=== PATIENT | female | born 1955 | race Hispanic/Latino ===

== ENCOUNTER → 2018-11-10 | Outpatient (CLI) | payer BC ==
[~2018-11-10] MED LIST: AEC81 PO; CARV12.580 PO; IOHEXOL-350 75 ML VIAL IV ONE; LOSA50TA2 PO; PHOSLOC PO; ROSU10TA PO
== END | disposition home or self-care (01) ==
LOC: RAH 07:18
PROVIDERS: ATTEND Internal Medicine Cardiovascular Disease
DX: I65.21 Occlusion and stenosis of right carotid artery (principal)
CPT/HCPCS: 70496; 70498; Q9967

== ENCOUNTER 2018-12-19 08:45 | Day surgery (SDC) | payer BC ==
[2018-12-15 11:32] LABS: BASOPHILS % (AUTO) 0.7 % (0.0-5.0); EOSINOPHILS % (AUTO) 1.7 % (0.0-8.0); HEMATOCRIT 34.5 % (36-48); MEAN CORPUSCULAR HEMOGLOBIN 32.2 pg (27.0-33.0); MEAN CORPUSCULAR HGB CONC 33.2 g/dL (32.0-36.0); MEAN CORPUSCULAR VOLUME 96.7 fL (79-99); NEUTROPHILS % (AUTO) 77.6 % (40.0-77.0); PLATELET COUNT (AUTO) 156 K/uL (130-400); RED BLOOD CELL COUNT(AUTO) 3.57 MIL/uL (4.00-5.50); RED CELL DISTRIBUTION WIDTH 15.1 % (11.0-15.5); WHITE BLOOD COUNT (AUTO) 6.2 K/uL (4.8-10.8)
[2018-12-15 11:41] LABS: CREATININE 2.2 mg/dL (0.5-1.5); POTASSIUM 4.3 mmol/L (3.5-5.1)
[2018-12-15 11:46] LABS: APPEARANCE,URINE CLEAR (CLEAR); BILIRUBIN,URINE NEGATIVE (NEGATIVE); COLOR,URINE YELLOW (YELLOW); GLUCOSE, URINE (UA) 100 mg/dL (NEGATIVE); KETONES,URINE NEGATIVE (NEGATIVE); LEUKOCYTE ESTERASE ,URINE SMALL (NEGATIVE); NITRATE,URINE NEGATIVE (NEGATIVE); OCCULT BLOOD,URINE TRACE-LYSED (NEGATIVE); PROTEIN,URINE >=300 mg/dL (NEGATIVE); UROBILINOGEN,URINE 0.2 mg/dL (0.2-1.0)
[2018-12-15 11:50] LABS: BACTERIA,URINE Rare /HPF (None Seen); RBC,URINE 0-1 /HPF (0-1); SQUAMOUS EPITHELIAL CELL,UR Rare /HPF (0-2); WBC,URINE 0-1 /HPF (0-1)
[2018-12-15 12:15] LABS: INR 1.01 (0.85-1.15); PARTIAL THROMBOPLASTIN TIME 62.3 SEC (26.3-35.5); PROTHROMBIN TIME 10.6 SEC (9.6-11.6)
--- NOTE | 2018-12-18 11:10 | NUR ---
ABNORMAL LABS CREAT 2.2, URINE LEUKEST SMALL, PTT 62.3, DIALYSIS PT, REPORTED TO KELLIE MCLAIN. NO FURTHER ORDERS GIVEN, MAY PROCEED WITH PLANNED PROCEDURE.
[2018-12-19] VITALS (12 sets, daily range): BP systolic 123–210; BP diastolic 46–77
[~2018-12-19] VITALS: Ht 160 cm; Wt 64.1 kg
[~2018-12-19 08:45] MED LIST changes: -IOHEXOL-350 75 ML VIAL IV ONE; -ROSU10TA PO; +ROSU10TA22 PO; +SODIUM CHLORIDE 0.9% 500ML 500 ML IV SCH
[2018-12-19] MEDS ORDERED: ROSU20TA30 PO (09:11)
[2018-12-19] MEDS ORDERED: RANI150T7 PO (09:11)
[2018-12-19] MEDS ORDERED: HYDR-3420 PO (09:11)
[2018-12-19] MEDS ORDERED: CLOP75TA32 PO (09:11)
[2018-12-19] MEDS ORDERED: TRAM50TA4 PO (09:11)
[2018-12-19] MEDS ORDERED: LOSA50TA64 PO (09:11)
[2018-12-19] MEDS ORDERED: SODIUM CHLORIDE 0.9% 1000ML 1,000 ML IV ONE (10:10)
[2018-12-19] MEDS ORDERED: HYDRALAZINE HCL 20 MG/ML VIAL ONE ×3 (11:06→14:27)
[2018-12-19] MEDS ORDERED: HEPARIN SODIUM 1000UNIT/ML 10ML VIAL ONE (11:53)
[2018-12-19] MEDS ORDERED: SODIUM BICARB 50MEQ 50ML VIAL ONE (11:53)
[2018-12-19] MEDS ORDERED: IOHEXOL-350 50ML VIAL IV ONE (11:53)
[2018-12-19] MEDS ORDERED: IOHEXOL 350 MG/ML 100ML INFUS..BTL IV ONE (11:53)
[2018-12-19] MEDS ORDERED: LIDOCAINE HCL 2% 20ML ONE (11:53)
[2018-12-19] MEDS ORDERED: NITROGLYCERIN 5 MG/ML 10 ML VIAL IV ONE (11:53)
[2018-12-19] MEDS ORDERED: MIDAZOLAM HCL 1 MG/ML 2ML VIAL ONE ×2 (13:50→13:57)
[2018-12-19] MEDS ORDERED: MEPERIDINE-PF 25 MG/ML SYG ONE ×2 (13:50→13:57)
[2018-12-19] MEDS ORDERED: HYDRALAZINE HCL 20 MG/ML VIAL IV PRN (15:00)
[2018-12-19] MEDS ORDERED: GLUCAGON 1MG KIT 1 MG ML IM PRN (15:00)
[2018-12-19] MEDS ORDERED: DEXTROSE 50%-WATER 50 ML DISP.SYRIN IV PRN (15:00)
[2018-12-19] MEDS ORDERED: SODIUM CHLORIDE 0.9% 10 ML VIAL IVP SCH (15:00)
[2018-12-19] MEDS ORDERED: INSULIN HUMULIN R 100 UNIT/ML 3ML SQ SCH (16:30)
== END 2018-12-19 19:10 | disposition home or self-care (01) ==
LOC: DAH 08:45
PROVIDERS: ATTEND Internal Medicine Cardiovascular Disease
DX: I25.10 Atherosclerotic heart disease of native coronary artery without angina pectoris (principal); I65.22 Occlusion and stenosis of left carotid artery; I13.2 Hypertensive heart and chronic kidney disease with heart failure and with stage 5 chronic kidney disease, or end stage renal disease; E11.22 Type 2 diabetes mellitus with diabetic chronic kidney disease; N18.6 End stage renal disease; I50.32 Chronic diastolic (congestive) heart failure; Z99.2 Dependence on renal dialysis; G47.33 Obstructive sleep apnea (adult) (pediatric); E11.51 Type 2 diabetes mellitus with diabetic peripheral angiopathy without gangrene; E11.319 Type 2 diabetes mellitus with unspecified diabetic retinopathy without macular edema; E11.21 Type 2 diabetes mellitus with diabetic nephropathy; I25.5 Ischemic cardiomyopathy
CPT/HCPCS: 36223; 36415; 71045; 75710; 80048; 81001; 82948 ×2; 85025; 85610; 85730; 93005; 93458; A4606; C1760; C1894; J0360 ×4; J1644; J2175 ×2; J2250 ×2; J3490 ×3; J7030; Q9965 ×2; Q9967 ×2; 99156; 99157

== ENCOUNTER → 2019-01-19 | Outpatient (CLI) | payer BC ==
[~2019-01-19] VITALS: Ht 160 cm; Wt 66.0 kg
[~2019-01-19] MED LIST changes: -AEC81 PO; +BUSP5TAB3 PO; +CLON0.1T PO; +CLOP75TA32 PO; +HYDR-3420 PO; -LOSA50TA2 PO; +LOSA50TA64 PO; +RANI150T7 PO; -ROSU10TA22 PO; +ROSU20TA30 PO; -SODIUM CHLORIDE 0.9% 500ML 500 ML IV SCH; +TRAM50TA4 PO
[2019-01-19 11:26] LABS: BASOPHILS % (AUTO) 0.9 % (0.0-5.0); EOSINOPHILS % (AUTO) 1.8 % (0.0-8.0); HEMATOCRIT 34.6 % (36-48); LYMPHOCYTES % (AUTO) 12.2 % (21.0-51.0); MEAN CORPUSCULAR HGB CONC 33.5 g/dL (32.0-36.0); MEAN CORPUSCULAR VOLUME 95.4 fL (79-99); MONOCYTES % (AUTO) 5.6 % (3.0-13.0); NEUTROPHILS % (AUTO) 79.5 % (40.0-77.0); PLATELET COUNT (AUTO) 104 K/uL (130-400); RED BLOOD CELL COUNT(AUTO) 3.62 MIL/uL (4.00-5.50); RED CELL DISTRIBUTION WIDTH 14.8 % (11.0-15.5); WHITE BLOOD COUNT (AUTO) 7.2 K/uL (4.8-10.8)
[2019-01-19 11:27] LABS: APPEARANCE,URINE Clear (CLEAR); BILIRUBIN,URINE Negative (NEGATIVE); COLOR,URINE Yellow (YELLOW); GLUCOSE, URINE (UA) 250 mg/dL (NEGATIVE); KETONES,URINE Negative (NEGATIVE); LEUKOCYTE ESTERASE ,URINE Trace (NEGATIVE); NITRATE,URINE Negative (NEGATIVE); OCCULT BLOOD,URINE Negative (NEGATIVE); PH,URINE >=9.0 (5.0-8.0); PROTEIN,URINE >=1000 mg/dL (NEGATIVE); UROBILINOGEN,URINE 0.2 mg/dL (0.2-1.0)
[2019-01-19 11:32] LABS: BACTERIA,URINE Rare /HPF (None Seen); RBC,URINE 0-1 /HPF (0-1); SQUAMOUS EPITHELIAL CELL,UR Rare /HPF (0-2)
[2019-01-19 11:35] LABS: CREATININE 2.6 mg/dL (0.5-1.5); POTASSIUM 4.1 mmol/L (3.5-5.1)
[2019-01-19 11:41] LABS: INR 0.99 (0.85-1.15); PROTHROMBIN TIME 10.4 SEC (9.6-11.6)
[2019-01-19 11:53] LABS: PARTIAL THROMBOPLASTIN TIME 94.9 SEC (26.3-35.5)
--- NOTE | 2019-01-19 12:22 | NUR ---
NOTIFIED KELLIE MCLAIN OF DR. ALCANTAR OF PTT 94.9CREAT 2.6,RBC 3.62,,HGB 11.6,HCT 34.6,ULEUKEST TRACE,UWBC 2-5,U GLU 250, UPROT GREATER THAN 1000. AND B/P OF , PER KELLIE MCLAIN OK TO PROCEED, REDRAW PT, PTT ON DAY OF PROCEDURE, PT TO TAKE HER CLONIDINE 0.1 MG NOW AND LET HER GO HOME. PATIENT DENIES ANY CHEST PAIN OR SOB
[2019-01-19 12:37] VITALS: BP 197/87
== END | disposition home or self-care (01) ==
LOC: EDSTATUS 10:00 → DAH 10:00 → EDSTATUS 10:00
PROVIDERS: ATTEND Internal Medicine Cardiovascular Disease
DX: I51.7 Cardiomegaly (principal); R94.31 Abnormal electrocardiogram [ECG] [EKG]; I65.29 Occlusion and stenosis of unspecified carotid artery
CPT/HCPCS: 36415; 71045; 80048; 81001; 85025; 85610; 85730; 86850; 86900; 86901; 86922; 93005

== ENCOUNTER 2019-02-28 05:30 | Inpatient (IN) | payer BC | END 2019-03-02 15:05 | disposition home or self-care (01) | LOC: DAHIP 05:30 → 2CH 10:38 → 2BH 21:54 | PROC: B3171ZZ Fluoroscopy of Left Internal Carotid Artery using Low Osmolar Contrast (ICD-10-PCS; principal; 2019-02-28) | PROC: 037L3DZ Dilation of Left Internal Carotid Artery with Intraluminal Device, Percutaneous Approach (ICD-10-PCS; 2019-02-28) | DX: I65.22 Occlusion and stenosis of left carotid artery (principal); N18.6 End stage renal disease; Z99.2 Dependence on renal dialysis; E11.22 Type 2 diabetes mellitus with diabetic chronic kidney disease; E11.51 Type 2 diabetes mellitus with diabetic peripheral angiopathy without gangrene ==

== ENCOUNTER 2019-03-18 19:25 | Emergency (ER) | payer BC ==
[~2019-03-18 19:25] MED LIST changes: +ASPI-555 PO; +FERR325T22 PO; -ROSU20TA30 PO; +ROSU20TA31 PO
[2019-03-18] MEDS ORDERED: ONDANSETRON HCL 4 MG/2 ML VIAL ONE (21:02)
[2019-03-18 21:31] LABS: BASOPHILS % (AUTO) 3.6 % (0.0-5.0); HEMATOCRIT 31.5 % (36-48); LYMPHOCYTES % (AUTO) 12.3 % (21.0-51.0); MEAN CORPUSCULAR VOLUME 93.8 fL (79-99); MONOCYTES % (AUTO) 8.8 % (3.0-13.0); NEUTROPHILS % (AUTO) 66.3 % (40.0-77.0); NUCLEATED RED BLOOD CELLS 0.1 % (0.0-0.19); PLATELET COUNT (AUTO) 121 K/uL (130-400); RED BLOOD CELL COUNT(AUTO) 3.36 MIL/uL (4.00-5.50); RED CELL DISTRIBUTION WIDTH 14.9 % (11.0-15.5); WHITE BLOOD COUNT (AUTO) 4.8 K/uL (4.8-10.8)
[2019-03-18 21:39] LABS: CREATININE 5.8 mg/dL (0.5-1.5)
[2019-03-18 21:44] LABS: POTASSIUM 5.4 mmol/L (3.5-5.1)
[2019-03-18 21:45] LABS: ALBUMIN 3.3 g/dL (3.5-5.0); BILIRUBIN,TOTAL 0.5 mg/dL (0.2-1.0); TOTAL PROTEIN, SERUM 7.3 g/dL (6.0-8.3)
[2019-03-18] MEDS ORDERED: IPRATROPIUM/ALBUTEROL SULFATE 3 ML SOLUTION IH ONE (22:14)
== END 2019-03-19 01:02 | disposition home or self-care (01) ==
LOC: EDH 19:25
DX: I13.2 Hypertensive heart and chronic kidney disease with heart failure and with stage 5 chronic kidney disease, or end stage renal disease (principal); E11.22 Type 2 diabetes mellitus with diabetic chronic kidney disease; N18.6 End stage renal disease; I50.9 Heart failure, unspecified; J44.9 Chronic obstructive pulmonary disease, unspecified; E78.5 Hyperlipidemia, unspecified; Z88.6 Allergy status to analgesic agent; Z88.8 Allergy status to other drugs, medicaments and biological substances; Z90.49 Acquired absence of other specified parts of digestive tract; Z98.890 Other specified postprocedural states; Z99.2 Dependence on renal dialysis
CPT/HCPCS: 36415; 74018; 80053; 85025; 96374; 99285; J2405

== ENCOUNTER 2019-03-19 02:50 | Emergency (ER) | payer BC ==
[2019-03-19] MEDS ORDERED: ONDANSETRON HCL 4 MG/2 ML VIAL ONE (03:49)
[2019-03-19] MEDS ORDERED: MORPHINE SULFATE 2 MG/ML 1ML SYG ONE (03:50)
== END 2019-03-19 05:31 | disposition home or self-care (01) ==
LOC: EDH 02:50
DX: I13.2 Hypertensive heart and chronic kidney disease with heart failure and with stage 5 chronic kidney disease, or end stage renal disease (principal); E11.22 Type 2 diabetes mellitus with diabetic chronic kidney disease; N18.6 End stage renal disease; I50.9 Heart failure, unspecified; R11.2 Nausea with vomiting, unspecified; R19.7 Diarrhea, unspecified; R10.9 Unspecified abdominal pain; E78.5 Hyperlipidemia, unspecified; J44.9 Chronic obstructive pulmonary disease, unspecified; Z99.2 Dependence on renal dialysis; Z88.6 Allergy status to analgesic agent; Z88.8 Allergy status to other drugs, medicaments and biological substances
CPT/HCPCS: 96374; 96375; 99284; J2405

== ENCOUNTER 2019-05-24 17:50 | Observation (INO) | payer BC ==
[2019-05-24 18:35] LABS: BASOPHILS % (AUTO) 0.9 % (0.0-5.0); EOSINOPHILS % (AUTO) 2.9 % (0.0-8.0); HEMATOCRIT 38.5 % (36-48); LYMPHOCYTES % (AUTO) 19.1 % (21.0-51.0); MEAN CORPUSCULAR HEMOGLOBIN 32.4 pg (27.0-33.0); MEAN CORPUSCULAR HGB CONC 33.5 g/dL (32.0-36.0); MEAN CORPUSCULAR VOLUME 96.9 fL (79-99); MONOCYTES % (AUTO) 5.2 % (3.0-13.0); NEUTROPHILS % (AUTO) 71.9 % (40.0-77.0); PLATELET COUNT (AUTO) 144 K/uL (130-400); RED BLOOD CELL COUNT(AUTO) 3.97 MIL/uL (4.00-5.50); RED CELL DISTRIBUTION WIDTH 15.4 % (11.0-15.5); WHITE BLOOD COUNT (AUTO) 5.9 K/uL (4.8-10.8)
[2019-05-24 18:47] LABS: PROTHROMBIN TIME 10.5 SEC (9.6-11.6)
[2019-05-24 18:48] LABS: CREATININE 5.2 mg/dL (0.5-1.5); POTASSIUM 5.9 mmol/L (3.5-5.1)
[2019-05-24 18:54] LABS: ALBUMIN 3.6 g/dL (3.5-5.0); BILIRUBIN,TOTAL 0.4 mg/dL (0.2-1.0)
[2019-05-24 23:52] LABS: APPEARANCE,URINE Clear (CLEAR); BILIRUBIN,URINE Negative (NEGATIVE); COLOR,URINE Yellow (YELLOW); GLUCOSE, URINE (UA) TRACE mg/dL (NEGATIVE); KETONES,URINE Negative (NEGATIVE); LEUKOCYTE ESTERASE ,URINE Trace (NEGATIVE); NITRATE,URINE Negative (NEGATIVE); OCCULT BLOOD,URINE Negative (NEGATIVE); PH,URINE 8.5 (5.0-8.0); PROTEIN,URINE 300 mg/dL (NEGATIVE); UROBILINOGEN,URINE 0.2 mg/dL (0.2-1.0)
[2019-05-25] LABS: AMPHET/METH SCREEN,URINE NEGATIVE (NEGATIVE); BARBITURATE SCREEN, URINE NEGATIVE (NEGATIVE); BENZODIAZEPINES SCREEN,URINE NEGATIVE (NEGATIVE); CANNABINOID SCREEN,URINE NEGATIVE (NEGATIVE); COCAINE SCREEN,URINE NEGATIVE (NEGATIVE); OPIATE SCREEN,URINE NEGATIVE (NEGATIVE); PHENCYCLIDINE SCREEN,URINE NEGATIVE (NEGATIVE)
[2019-05-25 00:11] LABS: BACTERIA,URINE None Seen /HPF (None Seen); RBC,URINE None Seen /HPF (0-1); SQUAMOUS EPITHELIAL CELL,UR Rare /HPF (0-2); WBC,URINE 0-1 /HPF (0-1); YEAST,URINE BUDDING None Seen /HPF (None Seen)
[2019-05-25] MEDS ORDERED: INSULIN R PO SS1 SQ SCH (07:30)
[2019-05-25] MEDS ORDERED: ERGO500014 PO (09:07)
[2019-05-25] MEDS ORDERED: CPAP NASAL (09:07)
[2019-05-25] MEDS ORDERED: [UNRECOGNIZED DRUG - OTHER] ×2 (09:07→09:08)
[2019-05-25] MEDS ORDERED: LORA10TA7 PO (09:07)
[2019-05-25] MEDS ORDERED: COLE5PAC3 PO (09:07)
[2019-05-25] MEDS ORDERED: CLON0.1T PO (09:07)
[2019-05-25] MEDS ORDERED: RANI150T7 PO (09:07)
[2019-05-25] MEDS ORDERED: FOLI1TAB61 PO (09:07)
[2019-05-25] MEDS ORDERED: DOCU-116 PO (09:09)
--- NOTE | 2019-05-25 09:27 | NUR ---
DCP: HOME SW met with pt who lives with her Fracisco Castellanos [phone]. Pt states she is independent of all ADLS, has a shower chair she uses when feeling weak after dialysis treatment. [facility]. PCP is Theresa Patel and uses [facility] for rx. Denies dc needs and plan is home with Addendum: 05/25/19 at 09 by SUSANNAH GUILLAUME Amended: Links added.
[2019-05-25] MEDS ORDERED: CLONIDINE HCL 0.1 MG TABLET PO PRN (09:30)
[2019-05-25] MEDS ORDERED: TRAMADOL HCL 50 MG TABLET PO PRN (09:30)
[2019-05-25] MEDS ORDERED: DIPHENHYDRAMINE HCL 25 MG CAPSULE PO PRN (11:45)
[2019-05-25] MEDS ORDERED: ONDANSETRON HCL 4 MG/2 ML VIAL IV PRN (11:45)
[2019-05-25] MEDS ORDERED: ACETAMINOPHEN 325 MG TAB PO PRN ×2 (11:45)
[2019-05-25] MEDS ORDERED: ASPIRIN 81 MG EC TAB PO SCH (12:00)
--- NOTE | 2019-05-25 13:53 | NUR ---
DC DC INSTRUCTIONS GIVEN TO PT, PATIENT INSTRUCTED TO GO TO HEMODIALYSIS TODAY AT 1430 HAS ALREADY BEEN SET UP BY [facility] ER NURSE. INSTRUCTED TO F/U WITH DR. Theresa ROMAN. PT STATES HAS APPPOINTMENT SET UP ALREADY WITH ER. PATIENT INSTRUCTED TO CONTINUE HOME MEDS AND ON ASPIRIN DOSE THAT WAS INCREASE. SHE VERBALIZED UNDERSTANDING PT AWAKE AND ALERT, DENIES ANY PAIN OR DISCOMFORTS. RIGHT HAND PIV REMOVED, CATHETER INTACT, SITE ASYMPTOMATIC, PT WAITING FOR HER TO GO HOME
[2019-05-25] MEDS ORDERED: CALCIUM ACETATE 667 MG CAPSULE PO SCH (14:00)
[2019-05-25] MEDS ORDERED: HYDRALAZINE HCL 10 MG TABLET PO SCH (14:00)
[2019-05-25] MEDS ORDERED: CARVEDILOL 12.5 MG TABLET PO SCH (21:00)
[2019-05-25] MEDS ORDERED: ATORVASTATIN CALCIUM 40 MG TABLET PO SCH (21:00)
[2019-05-25] MEDS ORDERED: DOCUSATE SODIUM 100 MG CAP PO SCH (21:00)
[2019-05-25] MEDS ORDERED: BUSPIRONE HCL 5 MG TABLET PO SCH (21:00)
[2019-05-25] MEDS ORDERED: RANITIDINE HCL 15 MG/1 ML PO PRN (21:00)
[2019-05-25] MEDS ORDERED: LOSARTAN 50 MG TABLET PO SCH (21:00)
[2019-05-25] MEDS ORDERED: CPAP NASAL SCH (21:00)
[2019-05-25] MEDS ORDERED: LORATADINE 10 MG TABLET PO SCH (21:00)
[2019-05-26] MEDS ORDERED: CLOPIDOGREL BISULFATE 75 MG TAB PO SCH (09:00)
[2019-05-26] MEDS ORDERED: FERROUS SULFATE 325 MG TABLET.DR PO SCH (09:00)
[2019-05-26] MEDS ORDERED: FOLIC ACID/VITAMIN B COMP W-C 1 MG CAP/TAB PO SCH (09:00)
[2019-05-26] MEDS ORDERED: ENOXAPARIN SODIUM 30 MG/0.3 ML SQ SCH (09:00)
[2019-05-26] MEDS ORDERED: COLESTIPOL PO SCH (09:00)
[2019-05-28] MEDS ORDERED: ERGOCALCIFEROL (VITAMIN D2) 50,000 UNIT CAPSULE PO SCH (09:00)
== END 2019-05-25 14:14 | disposition home or self-care (01) ==
LOC: EDH 17:50 → EDHIP 19:47
PROVIDERS: ADMIT Internal Medicine; ATTEND Internal Medicine
DX: I63.9 Cerebral infarction, unspecified (principal); I13.2 Hypertensive heart and chronic kidney disease with heart failure and with stage 5 chronic kidney disease, or end stage renal disease; I50.42 Chronic combined systolic (congestive) and diastolic (congestive) heart failure; N18.6 End stage renal disease; R41.82 Altered mental status, unspecified; D63.8 Anemia in other chronic diseases classified elsewhere; E11.21 Type 2 diabetes mellitus with diabetic nephropathy; E11.22 Type 2 diabetes mellitus with diabetic chronic kidney disease; E11.319 Type 2 diabetes mellitus with unspecified diabetic retinopathy without macular edema; E11.42 Type 2 diabetes mellitus with diabetic polyneuropathy; E78.00 Pure hypercholesterolemia, unspecified; J44.9 Chronic obstructive pulmonary disease, unspecified; E78.2 Mixed hyperlipidemia; E87.5 Hyperkalemia; G47.33 Obstructive sleep apnea (adult) (pediatric); I25.10 Atherosclerotic heart disease of native coronary artery without angina pectoris; I65.22 Occlusion and stenosis of left carotid artery; K21.9 Gastro-esophageal reflux disease without esophagitis; Z86.73 Personal history of transient ischemic attack (TIA), and cerebral infarction without residual deficits; Z99.2 Dependence on renal dialysis; Z83.3 Family history of diabetes mellitus; Z82.49 Family history of ischemic heart disease and other diseases of the circulatory system; Z79.899 Other long term (current) drug therapy; Z79.02 Long term (current) use of antithrombotics/antiplatelets
CPT/HCPCS: 36415; 70450; 70544; 70547; 71045; 80053; 80305; 81001; 82550; 82948 ×4; 83721; 84484; 85025; 85610; 85730; 93005; 99284; G0378 ×3

== ENCOUNTER 2021-03-15 13:54 | Emergency (ER) | payer BC ==
[~2021-03-15] VITALS: Ht 160 cm; Wt 68.0 kg
[~2021-03-15 13:54] MED LIST changes: -ASPI-555 PO; +ASPI-556 PO; +COLE5PAC3 PO; +CPAP NASAL; +DOCU-116 PO; +ERGO500014 PO; +FOLI1TAB61 PO; +LORA10TA7 PO; +[UNRECOGNIZED DRUG - OTHER]
[2021-03-15 14:51] VITALS: BP 208/84
[2021-03-15 15:02] LABS: HEMATOCRIT 34.4 % (36-48); MEAN CORPUSCULAR HEMOGLOBIN 30.3 pg (27.0-33.0); MEAN CORPUSCULAR HGB CONC 32.8 g/dL (32.0-36.0); MEAN CORPUSCULAR VOLUME 92.2 fL (79-99); PLATELET COUNT (AUTO) 152 K/uL (130-400); RED BLOOD CELL COUNT(AUTO) 3.73 MIL/uL (4.00-5.50); RED CELL DISTRIBUTION WIDTH 14.3 % (11.0-15.5); WHITE BLOOD COUNT (AUTO) 10.5 K/uL (4.8-10.8)
[2021-03-15 15:19] LABS: ALBUMIN 3.8 g/dL (3.5-5.0); BILIRUBIN,TOTAL 0.6 mg/dL (0.2-1.0); CREATININE 6.4 mg/dL (0.5-1.5); POTASSIUM 5.6 mmol/L (3.5-5.1); TOTAL PROTEIN, SERUM 8.6 g/dL (6.0-8.3)
[2021-03-15 15:53] VITALS: BP 174/72
[2021-03-15] MEDS ORDERED: ONDANSETRON 4MG INJ ONE (16:07)
[2021-03-15 16:09] LABS: BASOPHILS % (MANUAL) 2 % (0-2); LYMPHOCYTES % (MANUAL) 20 % (22-44); MAN.DIFF COMMENT-IMPRESSION MANUAL DIFFERENTIAL; MONOCYTES % (MANUAL) 4 % (2-9); SEGMENTED NEUTROPHILS % 74 % (40-70)
[2021-03-15 16:10] LABS: PLATELET MORPHOLOGY COMMENT ADEQUATE
[2021-03-15] MEDS: 0.9% NACL 500ML IV.SOLN 500 ML IV ONE ×2 (16:10→17:38)
[2021-03-15] MEDS ORDERED: ONDANSETRON 4MG INJ IVP ONE (16:30)
[2021-03-15 16:53] VITALS: BP 173/63
[2021-03-15] MEDS ORDERED: ONDA4TAB4 PO (17:36)
[2021-03-15 17:55] VITALS: BP 159/86
== END 2021-03-15 19:15 | disposition home or self-care (01) ==
LOC: EDH 13:54
DX: E86.0 Dehydration (principal); R11.2 Nausea with vomiting, unspecified; I12.0 Hypertensive chronic kidney disease with stage 5 chronic kidney disease or end stage renal disease; E11.22 Type 2 diabetes mellitus with diabetic chronic kidney disease; N18.6 End stage renal disease; E11.65 Type 2 diabetes mellitus with hyperglycemia; I25.10 Atherosclerotic heart disease of native coronary artery without angina pectoris; Z79.82 Long term (current) use of aspirin; Z88.6 Allergy status to analgesic agent; Z79.899 Other long term (current) drug therapy; Z99.2 Dependence on renal dialysis; Z88.8 Allergy status to other drugs, medicaments and biological substances
CPT/HCPCS: 36415; 80053; 82150; 83690; 85025; 93005; 96374; 99284; J2405

== ENCOUNTER → 2021-05-28 | Outpatient (CLI) | payer BC ==
[~2021-05-28] MED LIST changes: +ONDA4TAB4 PO
== END ==
LOC: DAH 10:00 → EDSTATUS 06-02 08:55
PROVIDERS: ATTEND Internal Medicine Gastroenterology
DX: Z20.822 Contact with and (suspected) exposure to COVID-19 (principal); R19.7 Diarrhea, unspecified
CPT/HCPCS: 87635; C9803

== ENCOUNTER 2021-06-09 07:00 | Day surgery (SDC) | payer BC ==
[~2021-06-09] VITALS: Ht 160 cm; Wt 65.0 kg
[~2021-06-09 07:00] MED LIST changes: +0.9%NACL 1000ML 1,000 ML IV ONE
[2021-06-09 07:58] VITALS: BP 188/73
[2021-06-09 08:52] LABS: CREATININE 4.9 mg/dL (0.5-1.5); POTASSIUM 5.1 mmol/L (3.5-5.1)
[2021-06-09] MEDS ORDERED: PROPOFOL 10 MG/ML 20ML VIAL IV ONE (09:27)
[2021-06-09] MEDS ORDERED: ONDANSETRON 4MG INJ ONE (09:27)
[2021-06-09 10:15] VITALS: BP 98/39
[2021-06-09 10:22] VITALS: BP 117/46
[2021-06-09 10:29] VITALS: BP 126/50
[2021-06-09 10:48] VITALS: BP 133/65
== END 2021-06-09 11:00 | disposition home or self-care (01) ==
LOC: DAH 07:00 → ENDO 07:00
PROVIDERS: ATTEND Internal Medicine Gastroenterology
DX: R19.7 Diarrhea, unspecified (principal); Z20.822 Contact with and (suspected) exposure to COVID-19; R19.4 Change in bowel habit; D12.2 Benign neoplasm of ascending colon; D12.3 Benign neoplasm of transverse colon; D12.4 Benign neoplasm of descending colon; I12.0 Hypertensive chronic kidney disease with stage 5 chronic kidney disease or end stage renal disease; N18.6 End stage renal disease; E78.5 Hyperlipidemia, unspecified; F41.9 Anxiety disorder, unspecified; E11.9 Type 2 diabetes mellitus without complications; Z86.010 Personal history of colon polyps; Z90.49 Acquired absence of other specified parts of digestive tract; Z95.5 Presence of coronary angioplasty implant and graft; Z80.0 Family history of malignant neoplasm of digestive organs; Z79.899 Other long term (current) drug therapy; Z98.890 Other specified postprocedural states
CPT/HCPCS: 36415; 43239; 45380; 45385; 80048; 87635; 93005; A4215 ×2; A4221; A4222; A4223; A4606; A4620; A4663; C9803; J2405; J2704; J7030

== ENCOUNTER 2022-09-06 06:56 | Observation (INO) | payer MEDICARE, OTHER ==
[2022-09-06] VITALS (17 sets, daily range): BP systolic 127–164; BP diastolic 54–83
[~2022-09-06] VITALS: Ht 160 cm; Wt 68.7 kg
[~2022-09-06 06:56] MED LIST changes: -0.9%NACL 1000ML 1,000 ML IV ONE; -COLE5PAC3 PO; -CPAP NASAL; -ERGO500014 PO; -FERR325T22 PO; -LORA10TA7 PO; -RANI150T7 PO; -[UNRECOGNIZED DRUG - OTHER]
[2022-09-06 07:34] LABS: BASOPHILS % (AUTO) 0.5 % (0.0-5.0); EOSINOPHILS % (AUTO) 2.8 % (0.0-8.0); HEMATOCRIT 35.1 % (36-48); LYMPHOCYTES % (AUTO) 16.3 % (21.0-51.0); MEAN CORPUSCULAR HEMOGLOBIN 30.9 pg (27.0-33.0); MEAN CORPUSCULAR HGB CONC 32.2 g/dL (32.0-36.0); MEAN CORPUSCULAR VOLUME 95.9 fL (79-99); MONOCYTES % (AUTO) 5.3 % (3.0-13.0); NEUTROPHILS % (AUTO) 74.9 % (40.0-77.0); PLATELET COUNT (AUTO) 80 K/uL (130-400); RED BLOOD CELL COUNT(AUTO) 3.66 MIL/uL (4.00-5.50); RED CELL DISTRIBUTION WIDTH 16.9 % (11.0-15.5); WHITE BLOOD COUNT (AUTO) 4.4 K/uL (4.8-10.8)
[2022-09-06 07:43] LABS: INR 1.11 (0.85-1.15)
[2022-09-06 07:44] LABS: PARTIAL THROMBOPLASTIN TIME 25.9 SEC (26.3-35.5)
[2022-09-06 08:05] LABS: ALBUMIN 3.7 g/dL (3.5-5.0); CREATININE 6.7 mg/dL (0.5-1.5); MAGNESIUM 2.1 mg/dL (1.80-2.40); POTASSIUM 4.9 mmol/L (3.5-5.1); TOTAL PROTEIN, SERUM 7.7 g/dL (6.0-8.3)
[2022-09-06 08:14] LABS: B-TYPE NATRIURETIC PEPTIDE > 5000 pg/mL (0-100)
[2022-09-06] MEDS ORDERED: FUROSEMIDE 40MG VIAL IV STA (08:26)
[2022-09-06] MEDS ORDERED: ACETAMINOPHEN 325 MG TAB PO PRN ×2 (09:00)
[2022-09-06] MEDS ORDERED: ONDANSETRON 4MG INJ IV PRN (09:00)
[2022-09-06 09:12] LABS: RETICULOCYTE % (AUTO) 0.76 % (0.42-2.23)
[2022-09-06] MEDS: NITROGLYCERIN 1GM OINT 1 INCH/1GM TD SCH ×2 (09:12→17:57)
[2022-09-06] MEDS: FAMOTIDINE 20MG VIAL IV SCH ×2 (09:12→19:58)
[2022-09-06 09:17] LABS: % IRON SATURATION 16.1 % (22-44)
[2022-09-06 09:30] LABS: THYROID STIMULATING HORMONE 3.36 uIU/mL (0.36-3.74)
[2022-09-06] MEDS ORDERED: HYDROXYZINE 25 MG TABLET PO ONE (09:30)
[2022-09-06] MEDS ORDERED: OSELTAMIVIR PHOSPHATE 75 MG CAP PO STA (10:08)
[2022-09-06] MEDS: INSULIN HUMULIN R 100 UNIT/ML 3ML SQ SCH ×3 (12:59→21:00)
[2022-09-06 16:13] LABS: HEPATITIS B SURFACE ANTIGEN Non-Reactive (Nonreactive)
[2022-09-06] MEDS ORDERED: HEPARIN 5,000 UNIT VIAL IJ SCH (17:30)
[2022-09-06] MEDS ORDERED: HEPARIN 5,000 UNIT VIAL ONE (17:38)
[2022-09-07] VITALS: BP 138/70
[2022-09-07] MEDS: NITROGLYCERIN 1GM OINT 1 INCH/1GM TD SCH ×3 (00:40→17:12)
[2022-09-07 04:00] VITALS: BP 155/73
[2022-09-07] MEDS ORDERED: ALPRAZOLAM 0.25 MG TABLET PO ONE (04:30)
[2022-09-07 05:09] LABS: BASOPHILS % (AUTO) 0.8 % (0.0-5.0); EOSINOPHILS % (AUTO) 1.8 % (0.0-8.0); HEMATOCRIT 33.8 % (36-48); LYMPHOCYTES % (AUTO) 14.5 % (21.0-51.0); MEAN CORPUSCULAR HEMOGLOBIN 31.1 pg (27.0-33.0); MEAN CORPUSCULAR HGB CONC 32.2 g/dL (32.0-36.0); MEAN CORPUSCULAR VOLUME 96.3 fL (79-99); MONOCYTES % (AUTO) 5.3 % (3.0-13.0); NEUTROPHILS % (AUTO) 77.4 % (40.0-77.0); PLATELET COUNT (AUTO) 76 K/uL (130-400); RED BLOOD CELL COUNT(AUTO) 3.51 MIL/uL (4.00-5.50); RED CELL DISTRIBUTION WIDTH 16.5 % (11.0-15.5)
[2022-09-07 05:18] LABS: CREATININE 5.4 mg/dL (0.5-1.5); POTASSIUM 4.2 mmol/L (3.5-5.1)
[2022-09-07] MEDS: INSULIN HUMULIN R 100 UNIT/ML 3ML SQ SCH ×3 (06:20→16:30)
[2022-09-07 08:08] VITALS: BP 144/58
[2022-09-07] MEDS ORDERED: CLOP-31 PO (08:23)
[2022-09-07] MEDS ORDERED: TRAM50TA4 PO (08:23)
[2022-09-07] MEDS ORDERED: ASPI-1443 PO (08:23)
[2022-09-07] MEDS ORDERED: LORA10TA7 PO (08:23)
[2022-09-07] MEDS ORDERED: CLON0.1T PO (08:23)
[2022-09-07] MEDS ORDERED: FOLI1TAB82 PO (08:23)
[2022-09-07] MEDS: FAMOTIDINE 20MG VIAL IV SCH (08:47)
[2022-09-07 11:27] VITALS: BP 132/73
[2022-09-07] MEDS ORDERED: HEPARIN 5,000 UNIT VIAL IJ SCH (15:00)
[2022-09-07 16:23] VITALS: BP 136/68
== END 2022-09-07 19:00 | disposition home or self-care (01) ==
LOC: EDH 06:56 → EDHIP 08:45 → 4BH 14:35
PROVIDERS: ADMIT Internal Medicine; ATTEND Internal Medicine
DX: E87.70 Fluid overload, unspecified (principal); Z20.822 Contact with and (suspected) exposure to COVID-19; J90 Pleural effusion, not elsewhere classified; D61.818 Other pancytopenia; E87.1 Hypo-osmolality and hyponatremia; R82.1 Myoglobinuria; I12.0 Hypertensive chronic kidney disease with stage 5 chronic kidney disease or end stage renal disease; E11.22 Type 2 diabetes mellitus with diabetic chronic kidney disease; N18.6 End stage renal disease; E11.319 Type 2 diabetes mellitus with unspecified diabetic retinopathy without macular edema; E78.00 Pure hypercholesterolemia, unspecified; E87.8 Other disorders of electrolyte and fluid balance, not elsewhere classified; J44.9 Chronic obstructive pulmonary disease, unspecified; N25.81 Secondary hyperparathyroidism of renal origin; J96.90 Respiratory failure, unspecified, unspecified whether with hypoxia or hypercapnia; Z79.82 Long term (current) use of aspirin; Z88.6 Allergy status to analgesic agent; Z91.199 Patient's noncompliance with other medical treatment and regimen due to unspecified reason; Z99.2 Dependence on renal dialysis; Z79.899 Other long term (current) drug therapy
CPT/HCPCS: 96374; 96376 ×2; 96375; 99285; 84443; 83540; 83550; 82550; 83735; 83874; 84484; 80053; 83880; 82728; 85025 ×2; 85610; 85730; 85045; 87804 ×2; 82948 ×6; 86706; 87340; 86704; 82746; 36415 ×2; 87635; 71045; 93005; 80048; J1815; G0378 ×34; J3490 ×3; J1644 ×2; J1940; 90935

== ENCOUNTER 2022-12-10 09:41 | Day surgery (SDC) | payer OTHER ==
[2022-12-08 11:18] LABS: BASOPHILS % (AUTO) 0.9 % (0.0-5.0); EOSINOPHILS % (AUTO) 3.5 % (0.0-8.0); LYMPHOCYTES % (AUTO) 16.8 % (21.0-51.0); MEAN CORPUSCULAR HEMOGLOBIN 31.8 pg (27.0-33.0); MEAN CORPUSCULAR HGB CONC 32.1 g/dL (32.0-36.0); NEUTROPHILS % (AUTO) 72.6 % (40.0-77.0); PLATELET COUNT (AUTO) 143 K/uL (130-400); RED BLOOD CELL COUNT(AUTO) 3.84 MIL/uL (4.00-5.50); RED CELL DISTRIBUTION WIDTH 15.4 % (11.0-15.5); WHITE BLOOD COUNT (AUTO) 5.4 K/uL (4.8-10.8)
[2022-12-08 11:28] LABS: CREATININE 3.5 mg/dL (0.5-1.5); POTASSIUM 4.6 mmol/L (3.5-5.1)
[2022-12-08 11:30] LABS: INR 1.04 (0.85-1.15); PROTHROMBIN TIME 11.3 SEC (9.6-11.6)
[2022-12-08 11:31] LABS: PARTIAL THROMBOPLASTIN TIME 27.9 SEC (26.3-35.5)
[2022-12-08 11:42] LABS: B-TYPE NATRIURETIC PEPTIDE 4030 pg/mL (0-100)
[2022-12-08 11:47] VITALS: BP 140/56
[~2022-12-10] VITALS: Ht 160 cm; Wt 63.0 kg
[2022-12-10] VITALS (9 sets, daily range): BP systolic 112–156; BP diastolic 53–71
[~2022-12-10 09:41] MED LIST changes: -ASPI-556 PO; -BUSP5TAB3 PO; -CLON0.1T PO; -CLOP75TA32 PO; -DOCU-116 PO; -FOLI1TAB61 PO; +ONDA-104 PO; -ONDA4TAB4 PO; -PHOSLOC PO; +[UNRECOGNIZED DRUG - OTHER] PO
[2022-12-10] MEDS ORDERED: NITROGLYCERIN 50MG VIAL ONE (12:09)
[2022-12-10] MEDS ORDERED: FENTANYL CITRATE PF 50 MCG/1 ML 2ML VIAL ONE (12:09)
[2022-12-10] MEDS ORDERED: SODIUM BICARB 50MEQ 50ML VIAL 50 ML ONE (12:09)
[2022-12-10] MEDS ORDERED: LIDOCAINE HCL 400MG/20ML VIAL ONE (12:09)
[2022-12-10] MEDS ORDERED: HEPARIN 10,000 UNIT/10ML (1,000 UNIT/ML) VIAL ONE (12:09)
[2022-12-10] MEDS ORDERED: MIDAZOLAM HCL 1 MG/ML 2ML VIAL ONE (12:09)
[2022-12-10] MEDS ORDERED: IOHEXOL-350 75 ML VIAL IV ONE (12:16)
[2022-12-10] MEDS ORDERED: IOHEXOL-350 50ML VIAL IV ONE (12:16)
== END 2022-12-10 18:10 | disposition home or self-care (01) ==
LOC: DAH 09:41
PROVIDERS: ATTEND Internal Medicine Cardiovascular Disease
DX: I35.0 Nonrheumatic aortic (valve) stenosis (principal); I25.119 Atherosclerotic heart disease of native coronary artery with unspecified angina pectoris; I27.20 Pulmonary hypertension, unspecified; E11.22 Type 2 diabetes mellitus with diabetic chronic kidney disease; I13.2 Hypertensive heart and chronic kidney disease with heart failure and with stage 5 chronic kidney disease, or end stage renal disease; N18.6 End stage renal disease; I50.43 Acute on chronic combined systolic (congestive) and diastolic (congestive) heart failure; E11.51 Type 2 diabetes mellitus with diabetic peripheral angiopathy without gangrene; E11.3293 Type 2 diabetes mellitus with mild nonproliferative diabetic retinopathy without macular edema, bilateral; G47.33 Obstructive sleep apnea (adult) (pediatric); E78.5 Hyperlipidemia, unspecified; I25.2 Old myocardial infarction; Z98.890 Other specified postprocedural states; Z98.891 History of uterine scar from previous surgery; Z98.51 Tubal ligation status; Z90.49 Acquired absence of other specified parts of digestive tract; Z82.49 Family history of ischemic heart disease and other diseases of the circulatory system; Z80.0 Family history of malignant neoplasm of digestive organs; Z99.2 Dependence on renal dialysis; Z79.82 Long term (current) use of aspirin; Z79.01 Long term (current) use of anticoagulants; Z79.899 Other long term (current) drug therapy
CPT/HCPCS: 80048; 83880; 85025; 85610; 85730; 36415; 71045; 93005; 93460; 82948; C1769; C1894 ×3; C1760; C1893; J3010; J3490 ×3; J1644 ×2; J2250; Q9967 ×2; 99156; 99157